=== PATIENT | male | born 1945 | race Caucasian/White ===

== ENCOUNTER 2018-05-09 16:19 | Inpatient (IN) | payer MEDICARE ==
[~2018-05-09] VITALS: Ht 182.9 cm; Wt 92.1 kg
--- NOTE | ~2018-05-09 | DS ---
PATIENT:LOWELL RAYMOND :45 MEDICAL RECORD: [id number] DISCHARGE SUMMARY ADMISSION DATE: 05/09/18 DISCHARGE DATE: 05/19/18 IDENTIFYING DATA: The patient is 72 years old and he is admitted to the hospital on a voluntary basis because of aggression. The patient was initially unable to provide much in the way of useful history. Apparently, he has had a left hemispheric stroke and was suffering from dementia prior to the stroke, but since then has been very minimally cooperative and very minimally communicative. Apparently, he was very aggressive and was taken to the [facility] Emergency Room in [place]. He was given both Haldol and Ativan and was calmed. He was only oriented to person, but was agitated upon admission. HOSPITAL COURSE: The patient was evaluated from both a medical, psychological, and social standpoint. He was found to be significantly impaired cognitively as well as behaviorally out of control and disruptive. He was treated with memory enhancing medications, antidepressant and mood stabilizing medications and showed significant improvement through the course of the hospitalization. He subsequently was transitioned out of the hospital to home. 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 She felt that she could care for him and even though she likely is not going to be able to successfully do this, she insisted on taking him home rather than to a fci. Although there was a dramatic improvement in his behavior, there was little or no improvement in his underlying cognitive deficit. DISCHARGE DIAGNOSES: AXIS I: Vascular dementia. AXIS II: None. AXIS III: Status post stroke, hypertension, diabetes, visual impairment of uncertain etiology. AXIS IV: Moderate stressors. AXIS V: Global assessment of functioning is 30. PLAN: At the time of discharge, the patient was not acutely or directly dangerous to himself or others. He was in need of 29-vnem-w-day supervision. He has very limited insight about his situation. His long-term prognosis is guarded. TRANSINT:[id number] Voice Confirmation ID: [id number] DOCUMENT ID: [id number] CONOR MAGALLON MD at 1045 CC: [id number] DICTATION DATE: 05/21/18 1227 IMMIGRATION PATROL INSPECTOR: 05/21/18 1310 DIS IN 05/19/[address] [address]
--- NOTE | ~2018-05-09 | PN ---
PATIENT:LOWELL RAYMOND MEDICAL RECORD: [id number] LOCATION:MALA StarrDarren ADMISSION DATE: 05/09/18 PROGRESS NOTE DATE OF SERVICE: 05/15/2018 SUBJECTIVE: The patient's case was discussed with staff. He has no new complaint. OBJECTIVE: The patient is in good behavioral control with limited insight about his condition. He does tolerate his medicines well. Eye contact is poor. ASSESSMENT: No change in diagnoses. PLAN: Supportive and educational interventions were made. The patient's long-term prognosis is guarded. TRANSINT:[id number] Voice Confirmation ID: [id number] DOCUMENT ID: [id number] CONOR MAGALLON MD at 1459 CC: [id number] DICTATION DATE: 05/15/18 1141 PULLMAN CONDUCTOR: 05/15/18 1621 ADM IN [place] [id number] [place] [address]
--- NOTE | ~2018-05-09 | PN ---
PATIENT:LOWELL RAYMOND MEDICAL RECORD: [id number] LOCATION:MALA StarrDarren ADMISSION DATE: 05/09/18 PROGRESS NOTE DATE OF SERVICE: 05/19/2018 SUBJECTIVE: The patient's case was discussed with staff. He has no new complaint. OBJECTIVE: The patient is in good behavioral control with limited insight about his condition. He is tolerating his medicines well. Eye contact is fair. ASSESSMENT: No change in diagnoses. PLAN: Current medicines and therapies have been reviewed and will be maintained. Long-term prognosis is guarded. Followup after discharge today will be with his primary care physician. TRANSINT:[id number] Voice Confirmation ID: [id number] DOCUMENT ID: [id number] CONOR MAGALLON MD at 1322 CC: [id number] DICTATION DATE: 05/19/18 1202 DIRECTOR ORANGE: 05/19/18 1213 DIS IN 05/19/18 [facility] [address] [place] [address]
--- NOTE | ~2018-05-09 | PSY ---
PATIENT NAME:LOWELL RAYMOND MEDICAL RECORD: [id number] : 45 LOCATION:MALA Ro1125 ADMISSION DATE: 05/09/18 ACCOUNT: [id number] PSYCHIATRIC EVALUATION DATE OF EVALUATION: 05/10/18 IDENTIFYING DATA: The patient is 72 years old and he is admitted to the hospital on a voluntary basis. CHIEF COMPLAINT: Aggression. HISTORY OF PRESENT ILLNESS: Not very much is known about the patient. He is not able to provide anything in the way of useful history and our system here has no longitudinal records on him. This is the situation as I understand it now. The patient had a left hemispheric stroke recently. After acute hospitalization somewhere, but not here, he went to physical therapy rehabilitation at [facility] in [place]. Upon arriving there, he was violent and aggressive in a way that they simply could not manage. They referred him to us and we accepted. He got here late last night and after getting here was violent and aggressive and had to be given 2 doses of Ativan IM and 1 dose of Haldol IM in order to calm him. He is calm today, but he does not give me any useful information. He is only oriented to person. He is restless and agitated, but cannot explain why. PAST MEDICAL HISTORY: Apparently significant for diabetes and hypertension as well as of course the recent stroke that he suffered. He still has some preservation of speech and strength on his right side, although it is diminished. He does walk, but is unsteady. He clearly has visual impairment and I do not know if that predated or postdated the stroke. PAST PSYCHIATRIC HISTORY: Unknown. FAMILY PSYCHIATRIC HISTORY: Unknown. ALLERGIES: No known drug allergies. CURRENT MEDICATIONS: Include hydrochlorothiazide, lisinopril, glipizide, aspirin, Cardizem, Lipitor, Eliquis. SOCIAL HISTORY: The patient is . I presume he is retired since he is 72 years old, but I do not know what type of work he did. I do not know about his history of drug or alcohol abuse and again at the time of this dictation, there just simply is not information and he is not able to provide any useful information because of his condition. MENTAL STATUS EXAMINATION: The patient is awake, alert and oriented to person only. He does speak, it is not unintelligible. It is just disorganized in a way that is meaningless and when asked very simple questions regarding his personal background orientation, he thinks very long and hard, but is not able to come up with answers. He does deny that he would want to harm himself or others and I think he understood what I was asking him. ASSETS: Supportive family members. LIABILITIES: Limited insight. DIAGNOSTIC IMPRESSION: AXIS I: Vascular dementia. AXIS II: None. AXIS III: Status post stroke, hypertension, diabetes, visual impairment of uncertain etiology. AXIS IV: Moderate stressors. AXIS V: Global assessment of functioning is 25. PLAN: At this time, the patient is admitted to the hospital for a comprehensive medical, psychological, and social evaluation. He will be treated with both mood stabilizing and memory enhancing medications. His long-term prognosis is guarded. TRANSINT:[id number] Voice Confirmation ID: [id number] DOCUMENT ID: [id number] CONOR MAGALLON MD at 1203 CC: [id number] DICTATION DATE: 05/10/18 1517 GLUE BONE DRIER: 05/10/18 1544 [facility] [address] [place] [address]
--- NOTE | ~2018-05-09 | PN ---
PATIENT:LOWELL RAYMOND MEDICAL RECORD: [id number] LOCATION:MALA Starr112 ADMISSION DATE: 05/09/18 PROGRESS NOTE DATE OF SERVICE: 05/17/2018 SUBJECTIVE: The patient's case was discussed with staff. He has no new complaint. OBJECTIVE: The patient is in good behavioral control with poor insight about his condition. He does tolerate his medicines well. He is certainly less disruptive, less agitated and is more cooperative and yelling less. ASSESSMENT: No change in diagnoses. PLAN: The patient's plans to take him home. She is going to meet with the treatment team this afternoon and hopefully finalize plans for how she is going to manage. As documented already, she is probably trying to do more than she realistically can. The patient is almost completely visually impaired as well as severely demented. He does feed himself a little bit, but mostly needs assistance. TRANSINT:[id number] Voice Confirmation ID: [id number] DOCUMENT ID: [id number] CONOR MAGALLON MD at 1301 CC: [id number] DICTATION DATE: 05/17/18 1450 NURSE ESTHETICIAN: 05/17/18 1504 ADM IN [place] [address] [place] [id number]
--- NOTE | ~2018-05-09 | PN ---
PATIENT:LOWELL RAYMOND MEDICAL RECORD: [id number] LOCATION:MALA StarrDarren ADMISSION DATE: 05/09/18 PROGRESS NOTE DATE OF SERVICE: 05/14/2018 SUBJECTIVE: The patient's case was discussed with staff. He has no new complaint. OBJECTIVE: The patient is in much better behavioral control and is actually walking about some with assistance. He is still severely impaired cognitively. He is eating reasonably well and did sleep well. ASSESSMENT: No change in diagnoses. PLAN: Current medicines and therapies have been reviewed, both will be maintained. I am going to start him on Namenda for its memory enhancing properties. TRANSINT:[id number] Voice Confirmation ID: [id number] DOCUMENT ID: [id number] CONOR MAGALLON MD at 1118 CC: [id number] DICTATION DATE: 05/14/18 1152 GARMENT ALTERATION EXAMINER: 05/14/18 1345 ADM IN [facility] [address] [place] [address]
--- NOTE | ~2018-05-09 | PN ---
PATIENT:LOWELL RAYMOND MEDICAL RECORD: [id number] LOCATION:MALA JamisonDarcie112 ADMISSION DATE: 05/09/18 PROGRESS NOTE DATE OF SERVICE: 05/13/2018 SUBJECTIVE: The patient's case was discussed with staff. He has no new complaint. OBJECTIVE: The patient is oriented to person only. His mood is euthymic. His affect is appropriate. Thought processes are circumstantial. Memory, concentration, and abstraction abilities are at least moderately impaired. He denies that he would seek to harm himself or others. He is calmer today. ASSESSMENT: No change in diagnoses. PLAN: Supportive and educational interventions were made. Long-term prognosis is guarded. The patient will have his Geodon reduced slightly secondary to the improvement in his behaviors. TRANSINT:[id number] Voice Confirmation ID: [id number] DOCUMENT ID: [id number] CONOR MAGALLON MD at 1129 CC: [id number] DICTATION DATE: 05/13/18 142 SHAFT SINKER: 05/13/18 1429 ADM IN [place] [id number] [place] [id number]
--- NOTE | ~2018-05-09 | PN ---
PATIENT:LOWELL RAYMOND MEDICAL RECORD: [id number] LOCATION:MALA Starr112 ADMISSION DATE: 05/09/18 PROGRESS NOTE DATE OF SERVICE: 05/16/2018 SUBJECTIVE: The patient's case was discussed with staff. He has no new complaint. OBJECTIVE: The patient is in good behavioral control with limited insight about his condition. He does tolerate his medicines well. Eye contact is fair. Concentration is fair. ASSESSMENT: No change in diagnoses. PLAN: The patient is severely impaired. His is planning to take him home and care for him at home. She has been advised that this is not a good idea. I think his level of advanced dementia is more than she can handle. She says that she has worked as a BELL PERSON at a behavioral unit and a residential facility for a long time. She has also worked as a BELL PERSON on a dementia unit at a fpc and that she feels she can do it. This does not rise to the level of being inappropriate in a way that requires reporting to the authorities, but obviously we are going to respect her wishes. He does not have the capacity to make a decision, but I am going to go ahead and let him be discharged to home soon. I have reviewed his current medicines and I am going to increase the dose of the Namenda slightly. TRANSINT:[id number] Voice Confirmation ID: [id number] DOCUMENT ID: [id number] CONOR MAGALLON MD at 1434 CC: [id number] DICTATION DATE: 05/16/18 1525 PRODUCT DEVELOPMENT CARPENTER: 05/16/18 1614 ADM IN [place] [id number] [place] [address]
--- NOTE | ~2018-05-09 | PN ---
PATIENT:LOWELL RAYMOND MEDICAL RECORD: [id number] LOCATION:MALA Dodson ADMISSION DATE: 05/09/18 PROGRESS NOTE DATE OF SERVICE: 05/11/2018 SUBJECTIVE: The patient's case was discussed with staff. He has no new complaint. OBJECTIVE: The patient denies intent to harm himself or others. He generally tolerates his medicines well. Eye contact is poor. He is calm now, perhaps a little bit sleepy, but arousable. He was very agitated last night as documented by the night nursing staff. He required Haldol and Ativan around 8:00. He required more Haldol and Ativan around midnight and then an injection of Geodon about 2:30 in the morning. All of this was required to calm him as he was confused, paranoid, yelling, aggressive and unmanageable. He has no recollection of this. ASSESSMENT: No change in diagnoses. PLAN: I am going to start the patient on a scheduled dose of Geodon. He will be monitored for side effects associated with it. He currently is not manageable safely outside of a hospital environment. TRANSINT:[id number] Voice Confirmation ID: [id number] DOCUMENT ID: [id number] CONOR MAGALLON MD at 1323 CC: [id number] DICTATION DATE: 05/11/18 1222 SYSTEMS MANAGER: 05/11/18 1240 ADM IN [facility] [address] [place] [id number]
--- NOTE | ~2018-05-09 | PN ---
PATIENT:LOWELL RAYMOND MEDICAL RECORD: [id number] LOCATION:MALA Ro112 ADMISSION DATE: 05/09/18 PROGRESS NOTE DATE OF SERVICE: 05/18/2018 SUBJECTIVE: The patient's case was discussed with staff. He has no new complaint. OBJECTIVE: The patient denies intent to harm himself or others. He generally tolerates his medicines well. Eye contact is fair. Concentration is fair. He did not sleep well last night. ASSESSMENT: No change in diagnoses. PLAN: The patient will be maintained on current medicines, but I am going to add a low dose of trazodone to assist with sleep consolidation. As it has already been repeatedly documented, the patient's wants to take him home and I think he is at or very close to maximum hospital benefit and I am going to plan on discharging him tomorrow assuming this level of improvement is maintained. His long-term prognosis is guarded. Followup will be with his primary care doctor. TRANSINT:[id number] Voice Confirmation ID: [id number] DOCUMENT ID: [id number] CONOR MAGALLON MD at 1053 CC: [id number] DICTATION DATE: 05/18/18 142 SALESFORCE CONSULTANT: 05/18/18 1429 ADM IN [place] [id number] [place] [address]
--- NOTE | ~2018-05-09 | PN ---
PATIENT:LOWELL RAYMOND MEDICAL RECORD: [id number] LOCATION:MALA JamisonDarcieDarren ADMISSION DATE: 05/09/18 PROGRESS NOTE DATE OF SERVICE: 05/12/2018 SUBJECTIVE: The patient's case was discussed with staff. He has no new complaint. OBJECTIVE: The patient is sedated. I can arouse him temporarily, but it is clear he is sedated. Again, last night he required both Haldol, Ativan and Geodon because of his disruptive, agitated behaviors and I think that the accumulation of this has finally caught up with him. He is on a scheduled dose of Geodon and I plan to maintain that today. ASSESSMENT: No change in diagnoses. PLAN: Current medicines have been reviewed and will be maintained. His long-term prognosis is guarded. TRANSINT:[id number] Voice Confirmation ID: [id number] DOCUMENT ID: [id number] CONOR MAGALLON MD at 1350 CC: [id number] DICTATION DATE: 05/12/18 1356 FISH DRESSING MACHINE FEEDER: 05/12/18 1403 ADM IN [place] [id number] [place] [address]
[2018-05-09] MEDS ORDERED: LIPITOR40 MG PO (20:59)
[2018-05-09] MEDS ORDERED: PRINZIDE 10/12.1 TA1 PO (21:00)
[2018-05-09] MEDS ORDERED: GLIPIZIDE10 MG PO (21:00)
[2018-05-09] MEDS ORDERED: CARDIZEM CD240 MG PO (21:01)
[2018-05-09] MEDS ORDERED: ELIQUIS2.5 MG PO (21:01)
[2018-05-09] MEDS ORDERED: BAYER CHEWABLE81 MG PO (21:01)
[2018-05-09] MEDS ORDERED: HALOPERIDOL1 MG PO (21:02)
[2018-05-09] MEDS ORDERED: ATIVAN2 MG/ML IM (21:04)
[2018-05-10 01:58] VITALS: BMI 27.6
[2018-05-10 03:06] LABS: APPEARANCE CLEAR (CLEAR); BILIRUBIN NEGATIVE (NEGATIVE); COLOR YELLOW (YELLOW); GLUCOSE NEGATIVE (NEGATIVE); KETONE NEGATIVE (NEGATIVE); NITRITE NEGATIVE (NEGATIVE); PROTEIN NEGATIVE (NEGATIVE); UROBILINOGEN NORMAL (NORMAL)
[2018-05-10 07:15] LABS: BASOPHILS 0.4 % (0-2); EOSINOPHILS 2.3 % (0-7); HEMATOCRIT 37.6 % (42.0-54.0); HEMOGLOBIN 13.2 g/dL (13.5-17.5); IMMATURE GRANULOCYTES 0.2 % (0-5); LYMPHOCYTES 24.2 % (15-50); MCH 32.2 pg (26.0-34.0); MCHC 35.1 g/dL (31.0-37.0); MCV 91.7 fL (80.0-100.0); MEAN PLATELET VOLUME 10.7 fL (7.4-10.4); MONOCYTES 7.7 % (2-11); NEUTROPHILS 65.2 % (40-80); PLATELET COUNT 187 10x3/uL (130-400); RDW 12.7 % (11.5-14.5); WBC 10.1 10x3/uL (4.8-10.8)
[2018-05-10 07:40] LABS: ALBUMIN 3.6 g/dL (3.4-5.0); ANION GAP 11.3 mmol/L (8-16); BILIRUBIN - TOTAL 0.75 mg/dL (0.2-1.3); CALCIUM 8.4 mg/dL (8.5-10.1); CARBON DIOXIDE 28.1 mmol/L (21.0-32.0); CHOL - HDL RATIO 1.9 ratio (2.3-4.9); CREATININE - SERUM 1.6 mg/dL (0.6-1.3); LDL-HDL RATIO 0.2 ratio (1.5-3.5); POTASSIUM - SERUM 4.4 mmol/L (3.5-5.1); PROTEIN - SERUM 7.1 g/dL (6.4-8.2); THYROID STIMULATING HORMONE 3.16 uIU/mL (0.36-3.74)
[2018-05-10 08:49] VITALS: BP 123/90
[2018-05-10 13:41] VITALS: Ht 182.9 cm; Wt 92.1 kg
[2018-05-10 21:22] VITALS: BP 110/62; BP 111/63
[2018-05-11 08:05] VITALS: BP 144/85
[2018-05-11 09:20] LABS: FOLATE (FOLIC ACID) - SERUM 12.4 ng/mL (>3.0)
[2018-05-11 20:55] VITALS: BP 101/63
[2018-05-12 11:03] VITALS: BP 111/53
[2018-05-12 20:05] VITALS: BP 103/62
[2018-05-13 07:46] VITALS: BP 108/61
[2018-05-13 20:35] VITALS: BP 104/63
[2018-05-14 09:37] VITALS: BP 94/57
[2018-05-14 19:21] VITALS: BP 138/81
[2018-05-15 08:00] VITALS: BP 99/68
[2018-05-15 19:25] VITALS: BP 136/74
[2018-05-16 08:15] VITALS: BP 122/67
[2018-05-16 19:34] VITALS: BP 114/79
[2018-05-17 07:55] VITALS: BP 124/69
[2018-05-17 21:59] VITALS: BP 111/71
[2018-05-18 09:00] VITALS: BP 109/66
[2018-05-18] MEDS ORDERED: LISINOPRIL10 MG PO (14:21)
[2018-05-18] MEDS ORDERED: NAMENDA5 MG PO (14:22)
[2018-05-18] MEDS ORDERED: SENOKOT-S TABLE1 TAB PO (14:22)
[2018-05-18] MEDS ORDERED: TRAZODONE HCL50 MG PO (14:22)
[2018-05-18] MEDS ORDERED: GEODON20 MG PO (14:22)
[2018-05-18 19:06] VITALS: BP 124/66
[2018-05-19 10:35] VITALS: BP 125/67
== END 2018-05-19 17:05 | disposition home or self-care (01) | DRG 57 ==
LOC: D.PSYCH 16:19
PROVIDERS: Psychiatry & Neurology Psychiatry
DX: I69.318 Other symptoms and signs involving cognitive functions following cerebral infarction (principal); F01.51 Vascular dementia, unspecified severity, with behavioral disturbance; E78.5 Hyperlipidemia, unspecified; I10 Essential (primary) hypertension; E11.9 Type 2 diabetes mellitus without complications; H53.9 Unspecified visual disturbance; Z74.09 Other reduced mobility; Z72.0 Tobacco use; K59.00 Constipation, unspecified; M79.606 Pain in leg, unspecified